=== PATIENT | female | born 1995 ===

== ENCOUNTER 2020-07-19 20:50 | Emergency (ER) | payer OTHER ==
[~2020-07-19] VITALS: Ht 152.4 cm; Wt 56.7 kg
[2020-07-19] MEDS ORDERED: FOLIC ACID0.8 M1 (21:09)
[2020-07-19] MEDS ORDERED: PRENATABS FA T1 EACH (21:09)
== END 2020-07-20 03:12 | disposition home or self-care (01) ==
LOC: ER 20:50
DX: O21.8 Other vomiting complicating pregnancy (principal); Z34.01 Encounter for supervision of normal first pregnancy, first trimester

== ENCOUNTER 2020-08-01 23:40 | Emergency (ER) | payer OTHER ==
[~2020-08-01] VITALS: Ht 152.4 cm; Wt 54.4 kg
[~2020-08-01 23:40] MED LIST: FOLIC ACID0.8 M1; PRENATABS FA T1 EACH
[2020-08-02] MEDS ORDERED: KEFLEX500 MG PO (19:23)
[2020-08-02] MEDS ORDERED: ACETAMINOPHEN650 M2 PO (19:23)
== END 2020-08-02 03:20 | disposition home or self-care (01) ==
LOC: ER 23:40
DX: O20.8 Other hemorrhage in early pregnancy (principal); Z3A.11 11 weeks gestation of pregnancy

== ENCOUNTER 2020-08-02 14:04 | Emergency (ER) | payer OTHER ==
[~2020-08-02] VITALS: Ht 152.4 cm; Wt 54.4 kg
[2020-08-02] MEDS ORDERED: KEFLEX500 MG PO (19:23)
[2020-08-02] MEDS ORDERED: ACETAMINOPHEN650 M2 PO (19:23)
== END 2020-08-02 19:43 | disposition home or self-care (01) ==
LOC: ER 14:04
DX: O20.0 Threatened abortion (principal)

== ENCOUNTER → 2020-09-23 | Outpatient (CLI) | payer OTHER ==
[~2020-09-23] MED LIST changes: +ACETAMINOPHEN650 M2 PO; +KEFLEX500 MG PO
== END | disposition home or self-care (01) ==
LOC: PRENATAL 11:00
PROVIDERS: ATTEND Obstetrics & Gynecology Maternal & Fetal Medicine
DX: O35.0XX1 Maternal care for (suspected) central nervous system malformation in fetus, fetus 1 (principal); O35.3XX1 Maternal care for (suspected) damage to fetus from viral disease in mother, fetus 1; O98.512 Other viral diseases complicating pregnancy, second trimester; Z36.89 Encounter for other specified antenatal screening; Z3A.19 19 weeks gestation of pregnancy

== ENCOUNTER 2020-12-24 19:06 | Outpatient (CLI) | payer OTHER | END 2020-12-25 13:40 | disposition home or self-care (01) | LOC: OBS/DEL 19:06 | PROVIDERS: ATTEND Obstetrics & Gynecology | DX: O26.843 Uterine size-date discrepancy, third trimester (principal); O36.8131 Decreased fetal movements, third trimester, fetus 1; O60.03 Preterm labor without delivery, third trimester; Z3A.32 32 weeks gestation of pregnancy ==

== ENCOUNTER 2021-02-08 08:40 | Inpatient (IN) | payer OTHER ==
[~2021-02-08] VITALS: Ht 152.4 cm; Wt 68.0 kg
[2021-02-08] MEDS ORDERED: DIALYVITE 800-1 EACH PO (09:36)
== END 2021-02-12 15:07 | disposition home or self-care (01) | DRG 787 ==
LOC: OB/GYN 08:40 → LDR 08:40 → OB/GYN 02-09 06:11
PROVIDERS: ADMIT Obstetrics & Gynecology; ATTEND Obstetrics & Gynecology
PROC: 3E0P7VZ Introduction of Hormone into Female Reproductive, Via Natural or Artificial Opening (ICD-10-PCS; 2021-02-09)
PROC: 4A1HXFZ Monitoring of Products of Conception, Cardiac Rhythm, External Approach (ICD-10-PCS; 2021-02-09)
PROC: 10D00Z1 Extraction of Products of Conception, Low, Open Approach (ICD-10-PCS; principal; 2021-02-09 03:15)
DX: O76 Abnormality in fetal heart rate and rhythm complicating labor and delivery (principal); O41.03X0 Oligohydramnios, third trimester, not applicable or unspecified; O36.5930 Maternal care for other known or suspected poor fetal growth, third trimester, not applicable or unspecified; Z3A.39 39 weeks gestation of pregnancy; Z37.0 Single live birth; Z20.822 Contact with and (suspected) exposure to COVID-19